=== PATIENT | male | born 1970 | race Hispanic/Latino ===

== ENCOUNTER 2020-04-30 08:38 | Emergency (ER) | payer SELFPAY ==
[~2020-04-30] VITALS: Ht 167.6 cm; Wt 85.0 kg
[~2020-04-30 08:38] MED LIST: BACTRIM DS1 TAB OR; BACTRIM DS1 TAB PO; PREDNISONE10 MG PO
[2020-04-30 09:37] LABS: ALBUMIN 4.5 g/dL (3.2-5.0); ALKALINE PHOSPHATASE 81 u/l (38-126); ANION GAP 13 (6-22 (CALC)); BUN 10 mg/dL (9-20); BUN/CREATININE RATIO 12 (12-20 (CALC)); CARBON DIOXIDE 27 mmol/l (22-30); CHLORIDE 103 mmol/l (95-108); CREATININE 0.8 mg/dL (0.7-1.3); GFR > 60 ML/MIN (>=60 (CALC)); GFR FOR AFR.AMER. > 60 ML/MIN (>=60 (CALC)); POTASSIUM 4.3 mmol/l (3.5-5.1); SODIUM 139 mmol/l (137-146); TOTAL PROTEIN 7.6 g/dL (6.3-8.2)
[2020-04-30 09:39] LABS: HEMATOCRIT 46.8 % (39.0-50.0); HEMOGLOBIN 15.5 g/dl (14.0-18.0); IMMATURE GRANULOCYTES 0.7 % (0.0-5.0); MEAN CELL VOLUME 89.7 fL CALC (80.0-100.0); MEAN CORPUSCULAR HGB 29.7 pG CALC (26.0-32.0); MEAN CORPUSCULAR HGB CONC 33.1 g/dL CAL (32.0-36.0); NEUT# 3.85 thou/uL (1.82-7.42); RED BLOOD COUNT 5.22 mill/uL (4.70-6.10); RED CELL DISTRI WIDTH 12.8 % (11.5-15.5)
[2020-04-30 09:56] LABS: SGOT/AST 31 u/l (17-59)
[2020-04-30] MEDS ORDERED: CEPHALEXIN500 M1 PO (11:02)
[2020-04-30] MEDS ORDERED: BACTRIM DS1 TAB PO (11:02)
[2020-04-30 11:26] VITALS: BP 141/70
== END 2020-04-30 11:31 | disposition home or self-care (01) | DRG 603 ==
LOC: ED 08:38
PROVIDERS: Family Medicine
DX: L03.211 Cellulitis of face (principal)